=== PATIENT | female | born 1960 | race African-American/Black ===

== ENCOUNTER 2019-01-07 08:39 | Inpatient (IN) | payer MEDICAID ==
[~2019-01-07] VITALS: Ht 165.1 cm; Wt 77.1 kg
[2019-01-07] MEDS ORDERED: ONDANSETRON HCL 4MG/2ML INJ IV STA ×2 (09:09→10:44)
[2019-01-07] MEDS ORDERED: MORPHINE SULFATE 4 MG/ML CPJ (NOT FOR IM USE) IV STA ×2 (09:09→10:44)
[2019-01-07] MEDS ORDERED: SODIUM CHLORIDE 0.9% 1,000 ML IV ONE (09:09)
[2019-01-07] MEDS ORDERED: FAMOTIDINE 20MG/2ML VIAL IV STA (09:09)
[2019-01-07 09:34] LABS: CHLORIDE 106 mEq/L (98-107)
[2019-01-07 09:36] LABS: PROTHROMBIN TIME 10.4 sec (9.1-11.1)
[2019-01-07 09:37] LABS: ETHANOL BLOOD < 10 mg/dL
[2019-01-07 09:38] LABS: EOSINOPHILS % 0.1 % (0.0-5.0); HEMATOCRIT. 43.4 % (36.0-48.0); HEMOGLOBIN. 14.4 g/dL (12.0-16.0); LYMPHOCYTES % 37.1 % (20.0-50.0); MEAN CORPUSCULAR HEMOGLOBIN 31.4 pg (28.0-32.0); MEAN CORPUSCULAR VOLUME 94.2 fL (81.0-99.0); MEAN PLATELET VOLUME 8.5 fl (7.4-10.4); MONOCYTES % 5.4 % (2.0-8.0); NEUTROPHILS % 56.4 % (40.0-76.0); PLATELET 302 x1000/uL (130-400); RED CELL DISTRIBUTION WIDTH 14.5 % (11.6-14.6)
[2019-01-07] MEDS ORDERED: KETOROLAC 30MG/ML VIAL IV ONE (10:00)
[2019-01-07] MEDS ORDERED: SODIUM CHLORIDE 0.9% 1000ML BAG (SEPSIS BOLUS) IV ONE (10:45)
[2019-01-07] MEDS ORDERED: PIPERACILLIN/TAZ 3.375G PREMIX 50 ML IV ONE (11:15)
[2019-01-07] MEDS ORDERED: ZOLPIDEM TARTRATE 5MG TABLET PO PRN (12:30)
[2019-01-07] MEDS ORDERED: KETOROLAC 15MG/ML VIAL IV PRN (12:30)
[2019-01-07] MEDS ORDERED: MAGNESIUM/ALUMINUM HYDROXIDE/SIMETHICONE 30ML UDC PO PRN (12:30)
[2019-01-07] MEDS ORDERED: CLONIDINE 0.1MG TABLET PO PRN (12:30)
[2019-01-07] MEDS ORDERED: ONDANSETRON HCL 4MG/2ML INJ IV PRN (12:30)
[2019-01-07] MEDS ORDERED: GUAIFENESIN 200MG/10ML SUGAR FREE UDC PO PRN (12:30)
[2019-01-07] MEDS ORDERED: IPRATROPIUM/ALBUTEROL 0.5-3(2.5)MG/3ML NEB INH PRN (12:30)
[2019-01-07] MEDS ORDERED: ACETAMINOPHEN 325MG TABLET PO PRN (12:30)
[2019-01-07] MEDS ORDERED: DOCUSATE SODIUM 100MG CAPSULE PO PRN (12:30)
[2019-01-07] MEDS ORDERED: NITROGLYCERIN 0.4MG TABLET SL SL PRN (12:30)
[2019-01-07] MEDS ORDERED: LORAZEPAM 0.5MG TABLET PO PRN (12:30)
[2019-01-07 16:00] VITALS: BP 109/56
[2019-01-07] MEDS ORDERED: DEXT 5%/0.45% NACL 1000ML 1,000 ML IV SCH (16:15)
[2019-01-07 16:49] VITALS: BP 125/76
[2019-01-07] MEDS: ENOXAPARIN 40MG/0.4ML SYR SUBCUT SCH ×2 (17:00→18:46)
[2019-01-07] MEDS ORDERED: LEVOFLOXACIN 500MG PREMIX 100 ML IV SCH (17:30)
[2019-01-07] MEDS ORDERED: METRONIDAZOLE 500 MG PREMIX 100 ML IV SCH (18:00)
[2019-01-07 20:00] VITALS: BP 137/91
[2019-01-08] MEDS ORDERED: PANTOPRAZOLE SODIUM 40 MG/VIAL IV SCH (09:00)
== END 2019-01-07 22:00 | disposition left against medical advice (07) ==
LOC: ER 08:39 → 6EST 11:41 → ENRESERV 14:43
PROVIDERS: ADMIT Internal Medicine; ATTEND Internal Medicine
DX: K80.50 Calculus of bile duct without cholangitis or cholecystitis without obstruction (principal); E11.9 Type 2 diabetes mellitus without complications; F12.10 Cannabis abuse, uncomplicated; Z53.21 Procedure and treatment not carried out due to patient leaving prior to being seen by health care provider
CPT/HCPCS: 36415; 71045; 76705; 80061; 80320; 83036; 83605; 93005; 96374; 96375; 99291; J1650; J1885; J1956; J2270; J2405; J3490; J7030; G0480